=== PATIENT | male | born 1945 | race Caucasian/White ===

== ENCOUNTER 2020-03-16 13:38 | Emergency (ER) | payer MEDICARE, SELFPAY ==
[2020-03-16 13:51] VITALS: BP 150/70; PULSE 78; RESP 18; TEMP 36.2; O2SAT 96
--- NOTE | 2020-03-16 13:53 | ED.WOUNDLAC ---
HPI - Wound/Laceration General Chief Complaint: Wound/Laceration Stated Complaint: Laceration on hand Time Seen by Provider: 03/16/20 13:53 Source: patient Mode of arrival: ambulatory Limitations: no limitations History of Present Illness HPI narrative: Akash Scanlon is a 74 yo male with a PMH of HTN, BPH, high cholesterol, [facility]eration left hand in the web between fingers 1 and 2, 3 cm in length; occurred POA. needs tetanus vaccine Related Data Home Medications Medication Instructions Recorded Confirmed atorvastatin 40 mg PO DAILY 03/16/20 03/16/20 diclofenac sodium 75 mg PO DAILY 03/16/20 03/16/20 loteprednol etabonate [Lotemax] 2 drp DAILY 03/16/20 03/16/20 quinapril-hydrochlorothiazide 20 - 25 tablet PO DAILY 03/16/20 03/16/20 tamsulosin 0.4 mg PO DAILY 03/16/20 03/16/20 Allergies Allergy/AdvReac Type Severity Reaction Status Date / Time doxycycline Allergy Mild Hives Verified 03/16/20 14:00 Review of Systems Review of Systems: Narrative: CONSTITUTIONAL: Denies fever, chills, sweats. EYES: Denies visual changes, redness, discharge. ENT: Denies rhinorrhea, congestion, sore throat, otalgia. CARDIOVASCULAR: Denies chest pain, palpitations, edema. RESPIRATORY: Denies dyspnea, wheezing, cough GASTROINTESTINAL: Denies abdominal pain, nausea, vomiting, diarrhea. GENITOURINARY: Denies dysuria, hematuria, abnormal discharge SKIN: Denies rash or itching. 3 cm laceration between fingers 1 and 2 in the webbing of hand NEUROLOGIC: Denies numbness, or focal weakness. PSYCHIATRIC: Denies anxiety or depression. [facility] Past Medical History Medical History Enlarged prostate High cholesterol Hypertension Family History Family History Other Heart disease Hypertension Social History Social History (Updated 03/16/20 @ 14:21 by Diana Azevedo CNP) Smoking status: Former smoker Alcohol intake: current Gender identity (if verbalized by the patient): Male Comments At time of signature, I agree with nursing past medical, surgical, social and family history. There is no relevant family history pertinent to the presenting complaint. Exam Narrative: Exam Narrative: GENERAL: This is a well-nourished, well-developed patient, in mild distress. HEAD: normocephalic, atraumatic. EYES: Sclera clear/white. Vision is grossly intact. EARS: External ears normal,. Hearing grossly intact. NOSE: External nose normal without nasal discharge, nares without redness, no rhinorrhea. THROAT: Mucous membranes moist, NECK: Neck supple, CARDIOVASCULAR: Regular rate and rhythm without murmurs, gallops, or rubs. RESPIRATORY: Clear to auscultation. Breath sounds equal bilaterally. GASTROINTESTINAL: Abdomen soft, SKIN: warm, intact with no suspicious lesions or rash, good texture and turgor.Laceration in web of L hand- finger 1-2 NEURO: awake, alert, and oriented to person, place and time. There were no obvious focal neurologic abnormalities. Steady gait EXTREMITIES: Normal range of motion. BACK: Nontender without deformity Course Course Emergency Course: Patient came here with laceration to the webbing of his left hand between fingers 1 and 2-requires suturing 6 sutures 3 cm laceration on left hand with no complications, be removed in 5 to 7 days Vital Signs Vital signs: Vital Signs Temperature 97.1 F L 03/16/20 13:51 Pulse Rate 78 03/16/20 13:51 Respiratory Rate 18 03/16/20 13:51 Blood Pressure 150/70 H 03/16/20 13:51 Pulse Oximetry 96 03/16/20 13:51 Temperature 97.1 F L 03/16/20 13:51 Pulse Rate 78 03/16/20 13:51 Respiratory Rate 18 03/16/20 13:51 Blood Pressure 150/70 H 03/16/20 13:51 Pulse Oximetry 96 03/16/20 13:51 Procedures Laceration Laceration 1: Date: 03/16/20 Time: 14:20 Site: hand Side (If applicable): le
[2020-03-16] MEDS: TETANUS,DIPHTHERIA,AC PERTUSSIS ADULT (0.5 ML) BOOSTRIX IM (14:00)
== END 2020-03-16 14:25 | disposition home or self-care (01) ==
PROVIDERS: Emergency Provider Nurse Practitioner; PCP Family Medicine Adolescent Medicine
DX: S61.412A Laceration without foreign body of left hand, initial encounter (principal); I10 Essential (primary) hypertension; N40.0 Benign prostatic hyperplasia without lower urinary tract symptoms; E78.00 Pure hypercholesterolemia, unspecified; Z87.891 Personal history of nicotine dependence; Z23 Encounter for immunization; W26.8XXA Contact with other sharp object(s), not elsewhere classified, initial encounter
CPT/HCPCS: 12002; 90471; 90715; 99212; G0463

== ENCOUNTER 2022-03-23 07:37 | Outpatient (CLI) | payer MEDICARE, SELFPAY ==
--- NOTE | 2022-03-23 08:24 | ECG_ITS ---
Measurements Intervals [place] Rate: 63 P: 69 UT: 215 QRS: 1 QRSD: 109 T: 24 QT: 416 QTc: 427 Interpretive Statements SINUS RHYTHM WITH FIRST DEGREE AV BLOCK OTHERWISE WITHIN NORMAL LIMITS NO PREVIOUS ECG AVAILABLE FOR COMPARISON Electronically Signed On 03-23-2022 14:50:40 CONFIGURATION RELEASE MANAGER by Akash Dye M.D.
[2022-03-23 09:04] LABS: Basophils Absolute Auto 0.1 K/mm3 (0.0-0.1); Basophils Percent Auto 0.8 % (0.2-1.2); Eosinophils Absolute Auto 0.2 K/mm3 (0-0.3); Eosinophils Percent Auto 3.1 % (0-4.4); Hematocrit 47.2 % (42.0-52.0); Hemoglobin 15.7 g/dL (14.0-18.0); Immature Granulocyte Absolute 0.02 K/mm3 (0.00-0.031); Immature Granulocyte Percent A 0.3 % (0-0.5); Lymphocytes Percent Auto 16.9 % (18.3-44.2); Mean Corpuscular HGB Conc 33.3 g/dl (32-36); Mean Corpuscular Hemoglobin 31.3 pg (26-34); Mean Corpuscular Volume 94.2 fl (80-100); Mean Platelet Volume 9.5 fl (7.4-10.4); Monocytes Absolute Auto 0.6 K/mm3 (0.1-0.6); Monocytes Percent Auto 10.2 % (2.6-8.5); Neutrophils Absolute Auto 4.1 K/mm3 (1.3-6.7); Neutrophils Percent Auto 68.7 % (45.5-73.1); Platelet Count Result 223 k/mm3 (150-375); Red Blood Count 5.01 M/mm3 (4.6-6.20); Red Cell Distribution Width 11.2 % (11.5-14.5); White Blood Count 5.9 K/mm3 (4.5-10.0)
[2022-03-23 09:14] LABS: Urine Cotinine NEGATIVE
[2022-03-23 09:16] LABS: Hemoglobin A1C 5.8 % (<5.7)
== END 2022-03-23 07:38 | disposition home or self-care (01) ==
PROVIDERS: PCP Family Medicine Adolescent Medicine; Visit Provider Orthopaedic Surgery
DX: M17.12 Unilateral primary osteoarthritis, left knee (principal); Z01.818 Encounter for other preprocedural examination; I44.0 Atrioventricular block, first degree
CPT/HCPCS: 80307; 83036; 85025; 86850; 86900; 86901; 87081; 93005

== ENCOUNTER 2022-04-04 00:15 | Day surgery (SDC) | payer MEDICARE, SELFPAY ==
--- NOTE | 2022-03-23 07:38 | PC.NURSE ---
PRE-OP INSTRUCTIONS, PLEASE READ CAREFULLY Report to the Outpatient Waiting Room, entrance under the green pavilion located off [facility], at time _0600_ on date _04/04/22_. Planned Procedure Time: _0730_. PACK A SMALL OVERNIGHT BAG AND LEAVE IN THE CAR ALONG WITH YOUR WALKER Time changes happen often and if your time is changed the preop area will call you the afternoon before. - You and your visitor will be asked to self-screen and do not enter if you have any COVID symptoms. - Only one visitor is requested with a max of two and NO children visitors are allowed at this time. - The patient visitor may be requested to leave or wait in car when not with patient due to distancing restrictions. - A mask is REQUIRED within the hospital. -VISITING HOURS 8AM-8PM Patients may have clear liquids (water, carbonated beverages, clear teas, apple juice) until 3 hours prior to surgery (0430 AM) with a maximum of 20 ounces. - No food from midnight until time of surgery Take the following medications with a SIP of water the morning of surgery: _EYE DROPS, TYLENOL IF NEEDED_ Medications to discontinue _DICLOFENAC PER DR. GILMAN'S INSTRUCTIONS_ Medications to discontinue per ANESTHESIA -_MULTIVITAMIN 3 DAYS PRIOR TO SURGERY, Last dose to be taken on 03/31/22 Please no deodorant, or body powder the day of surgery. No jewelry (including any body piercings) or valuables the day of surgery, leave them at home. Please take a shower or bath the night before, or the morning of, surgery with an antibacterial soap. Wear comfortable, loose fitting clothing. - Jewelry must be removed prior to entering the operating room. Rings and piercings that are not removed may be cut off. - The hospital will not accept responsibility for valuables. - Please leave all valuables, including medications, at home the day of surgery. If you are going home after surgery, a licensed driver guard must drive you home. - NO public transportation without another adult if you receive anesthesia. - We recommend that an adult stay with you for 24 hours following discharge. - We also recommend that you do not drive, make important decision, drink alcoholic beverages, or take any drugs that were not prescribed by your health care provider for at least 24 hours after your discharge time. Follow any additional instructions given to you from your surgeon. TOTAL JOINT CLASS 03/28/22 @ 10AM, [facility] If you or anyone in your household have experienced Covid symptoms in the past week, please notify your surgeon or the nurse liaison at the phone number below for possible testing. Instructions given to _PATIENT_and asked if any additional questions and then verbalized understanding. Patient advised to call surgeon office or pre surgery nurse liaison [phone] if any additional questions.
[2022-03-23 08:01] VITALS: BP 140/68; PULSE 70; RESP 20; TEMP 36.4; O2SAT 98; BMI 28.5
--- NOTE | 2022-03-30 14:41 | PM.IMHP ---
H&P: HPI History of Present Illness Date/Time: 03/30/22 14:41 Chief Complaint: the patient is a 76-year-old male who sees Dr. Solorio regarding his left knee. The patient has chronic ongoing history of pain due to primary osteoarthritis advanced in nature. He has aching pain that limits his daily activities he cannot stand for long periods he cannot walk long distances he has aching pain with associated swelling with startup pain rest pain and night pain. X-rays show advanced primary osteoarthritis in the left knee joint. The patient has failed a long course of conservative measures including cortisone therapy and anti-inflammatories at this point he has discussed further treatment options in detail Dr. Solorio he would now like to proceed with a left total knee arthroplasty. Review of Systems Review of Systems: Ten point review of systems otherwise negative [facility] Past Medical History Medical History Enlarged prostate High cholesterol Hypertension Surgical History Surgical History History of back surgery (~10/2020) History of total right knee replacement (2017) Hx of elbow surgery (~1967) Hx of hernia repair (~1990) Family History Family History Father Acute myocardial infarction Mother CHF (congestive heart failure) Sibling Hypertension Other Heart disease Social History Social History Smoking packs per day: 2 Smoking cigarettes per day: 40.0 Years smoked: 6 Smoking pack-years: 12.00 Smoking status: Former smoker Second hand tobacco smoke exposure: No Smoking end date: 03/25/71 Alcohol intake: current Alcohol use details: STATES 1 DRINK EVERY COUPLE OF WEEKS Substance use: never Substance use type: does not use Gender identity (if verbalized by the patient): Male Spiritual care concerns: No Meds Home Medications and Allergies Home Medications Medication Instructions Recorded Confirmed Type loteprednol etabonate 0.5 % eye 1 drp DAILY 03/16/20 03/23/22 History gel drops (Lotemax) rosuvastatin 40 mg tablet 40 mg PO DAILY #90 tabs 01/30/22 03/23/22 Rx diclofenac sodium 75 mg 75 mg PO BID #180 tabs 02/05/22 03/23/22 Rx tablet,delayed release quinapril 20 1 tablet PO DAILY #90 tabs 02/08/22 03/23/22 Rx mg-hydrochlorothiazide 25 mg tablet acetaminophen 325 mg tablet 650 mg PO QID PRN Pain 03/23/22 03/23/22 History (Tylenol) cyclosporine 0.05 % eye drops in a 1 drp EACH EYE Q12H 03/23/22 03/23/22 History dropperette (Restasis) fexofenadine-pseudoephedrine ER 1 tablet PO QAM PRN SEASONAL 03/23/22 03/23/22 History 180 mg-240 mg tablet,ext.release ALLERGIES 24 hr (Heather-D 24 Hour) multivitamin 1 tablet PO DAILY 03/23/22 03/23/22 History tamsulosin 0.4 mg capsule 0.8 mg PO BID 03/23/22 03/23/22 History Allergies Allergy/AdvReac Type Severity Reaction Status Date / Time doxycycline Allergy Mild Hives Verified 03/23/22 07:54 Exam Narrative: on exam the patient is noted be a well-developed well-nourished male no acute distress alert oriented x3. Normal mood and affect. Hearing and vision are intact. Respiratory is good no distress. Pulse regular rate and rhythm. Abdomen benign. The patient is noted to be 5 ft 11 in tall 200 lb with a BMI of 27.9. Extremities show the patient's left knee to be painful with manipulation and range of motion. He has tenderness along the joint lines and pain with extremes of motion with subpatellar crepitation mild effusion swelling hips move well with negative Stinchfield negative Hernan. Neurovascular is intact skin is intact x-rays show advanced primary osteoarthritis central nervous system within normal limits. Mild varus deformity left knee with [id number] changes in medial compartment are noted. Ass
--- NOTE | 2022-03-30 15:20 | PC.NURSE ---
Report to the Outpatient Waiting Room, entrance under the green pavilion located off [facility], at time __6:00AM on date __04/04/22 . Planned Procedure Time: __7:30AM . (RESCHEDULED BACK TO ORIGINAL DATE & TIME) Time changes happen often and if your time is changed the preop area will call you the afternoon before. - You and your visitor will be asked to self-screen and do not enter if you have any COVID symptoms. - Only one visitor is requested with a max of two and NO children visitors are allowed at this time. - The patient visitor may be requested to leave or wait in car when not with patient due to distancing restrictions. - A mask is optional within the hospital. Patients may have clear liquids (water, carbonated beverages, clear teas, apple juice) until 3 hours prior to surgery with a maximum of 20 ounces. - No food from midnight until time of surgery Take the following medications with a SIP of water the morning of surgery: EYE DROPS, TYLENOL NEEDED Medications to discontinue per physician ___HOLD DICLOFENAC PER DR GILMAN'S INSTRUCTIONS_ HOLD ALL VITAMINS/SUPPLEMENTS 3 DAYS PRE-OP PER ANESTHESIA- LAST DOSE 03/31/22___ Please no make-up, nail mohawk, hairspray, perfume, deodorant, or body powder the day of surgery. No jewelry (including any body piercings) or valuables the day of surgery, leave them at home. Please take a shower or bath the night before, or the morning of, surgery with an antibacterial soap. Wear comfortable, loose fitting clothing. Children are encouraged to wear pajamas. - Jewelry must be removed prior to entering the operating room. Rings and piercings that are not removed may be cut off. - The hospital will not accept responsibility for valuables. - Please leave all valuables, including medications, at home the day of surgery. If you are going home after surgery, a licensed tow truck driver must drive you home. - NO public transportation without another adult if you receive anesthesia. - We recommend that an adult stay with you for 24 hours following discharge. - We also recommend that you do not drive, make important decision, drink alcoholic beverages, or take any drugs that were not prescribed by your health care provider for at least 24 hours after your discharge time. Follow any additional instructions given to you from your surgeon. If you or anyone in your household have experienced Covid symptoms in the past week, please notify your surgeon or the nurse liaison at the phone number below for possible testing. Telephone instructions given to __PATIENT and asked if any additional questions and then verbalized understanding. Patient advised to call surgeon office or pre surgery nurse liaison [phone] if any additional questions.
--- NOTE | 2022-04-03 09:10 | WPDANESEPPF ---
Anes - Initial Pre Proc Eval Procedure: Operation Date: 04/04/22 07:30 Proposed Procedures p Left Total Knee Arthroplasty - Zachery Solorio MD Date/Time: 04/03/22 09:10 Surgeon: Zachery Solorio MD Pre Op Diagnosis: OA left knee Patient Data Age: 76 Gender: M Height: 1.8 m Weight: 92.9 kg Last Vital Signs Temp 36.4 C 03/23/22 08:01 Pulse 70 03/23/22 08:01 Resp 20 03/23/22 08:01 BP 140/68 03/23/22 08:01 Pulse Ox 98 03/23/22 08:01 O2 Del Method Room Air 03/23/22 08:01 Allergies Allergy/AdvReac Type Severity Reaction Status Date / Time doxycycline Allergy Mild Hives Verified 04/04/22 06:16 Home Medications Medication Instructions Recorded Confirmed Type loteprednol etabonate 0.5 % eye 1 drp DAILY 03/16/20 04/04/22 History gel drops (Lotemax) rosuvastatin 40 mg tablet 40 mg PO DAILY #90 tabs 01/30/22 04/04/22 Rx diclofenac sodium 75 mg 75 mg PO BID #180 tabs 02/05/22 04/04/22 Rx tablet,delayed release quinapril 20 1 tablet PO DAILY #90 tabs 02/08/22 04/04/22 Rx mg-hydrochlorothiazide 25 mg tablet acetaminophen 325 mg tablet 650 mg PO QID PRN Pain 03/23/22 04/04/22 History (Tylenol) cyclosporine 0.05 % eye drops in a 1 drp EACH EYE Q12H 03/23/22 04/04/22 History dropperette (Restasis) fexofenadine-pseudoephedrine ER 1 tablet PO QAM PRN SEASONAL 03/23/22 04/04/22 History 180 mg-240 mg tablet,ext.release ALLERGIES 24 hr (Heather-D 24 Hour) multivitamin 1 tablet PO DAILY 03/23/22 04/04/22 History tamsulosin 0.4 mg capsule 0.8 mg PO BID 03/23/22 04/04/22 History Patient hx anesthesia problems: none Family hx anesthesia problems: none Results Review: All pre-operative results and documents have been reviewed as part of the pre-operative evaluation. [facility] Past Medical History Medical History Enlarged prostate High cholesterol Hypertension Surgical History Surgical History History of back surgery (~10/2020) History of total right knee replacement (2018) Hx of elbow surgery (~1967) Hx of hernia repair (~1990) Family History Family History Father Acute myocardial infarction Mother CHF (congestive heart failure) Sibling Hypertension Other Heart disease Social History Social History Smoking packs per day: 2 Smoking cigarettes per day: 40.0 Years smoked: 6 Smoking pack-years: 12.00 Smoking status: Former smoker Second hand tobacco smoke exposure: No Smoking end date: 03/25/71 Alcohol intake: current Alcohol use details: STATES 1 DRINK EVERY COUPLE OF WEEKS Substance use: never Substance use type: does not use Living arrangements: with family Gender identity (if verbalized by the patient): Male Spiritual care concerns: No Anes - Eval Final PreProcedure Day of Procedure 04/03/22 09:10 Patient weight: overweight Heart: regular rate and rhythm Lungs: clear to auscultation Airway: Mallampati scale class II Neurological: alert and oriented Last oral intake: >/= 8 hours ASA classification: II Emergent: no Anesthetic plan: proceed Anesthesia type and monitoring: general LMA and standard monitoring Results Review: All pre-operative results and documents have been reviewed as part of the pre-operative evaluation. Informed Consent: The patient's anesthetic plan and its attendant risks and benefits were discussed with the patient/family/POA. Questions were solicited and answers provided to the satisfaction of the patient/family/POA.
[2022-04-04] VITALS (17 sets, daily range): BP systolic 126–153; BP diastolic 54–98; PULSE 63–88; RESP 10–20; TEMP 36.3–36.9; O2SAT 92–100
--- NOTE | ~2022-04-04 | XR_ITS ---
EXAMINATION: XR knee LT 2V DATE: 04/04/2022 09:45 INDICATION: Left knee arthroplasty. Postop. TECHNIQUE: 2 views of left knee were obtained. COMPARISON: None. FINDINGS: There is a total left knee arthroplasty with patellar resurfacing in near-anatomic alignmen t. No fracture. There is gas in the knee joint and soft tissues, consistent with recent surgery. Ante rior skin yvon are noted. IMPRESSION: 1. Total left knee arthroplasty in near-anatomic alignment. Reviewed, dictated and finalized at location A. EMS PROGRAM MANAGER
[2022-04-04] MEDS: LACTATED RINGERS 1,000 ML 30 ML IV CONT ×2 (06:35→09:34)
[2022-04-04] MEDS: TRANEXAMIC ACID 1,000MG/ISO100 1,000 MG/100 ML BAG 200 MG IVPB (07:07)
--- NOTE | 2022-04-04 07:09 | WPDHPUPDATE1 ---
History and Physical Update Update Date/Time: 04/04/22 07:09 History and Physical has been reviewed, including an updated exam of the patient. There are NO changes in the patient's condition. Risks, benefits, and alternatives have been discussed and questions answered. Patient agrees to proceed with procedure.
--- NOTE | 2022-04-04 07:10 | WPDANESPNB ---
Anes - Peripheral Nerve Block Date/Time: 04/04/22 07:10 I have discussed with the patient/family/POA the placement of a peripheral nerve block for post-operative pain management, including associated risks, benefits, complications, and side effects. Alternative methods of post-operative analgesia were detailed. Questions were solicited and answers provided to the satisfaction of the patient/family/POA. Time-Out: A pre-procedural Time-Out was completed immediately before starting the procedure and confirmed: Patient Identification, Site, Procedure, Patient Position and the Availability of Requisite Equipment. Clinical Indications: Acute post-operative pain management requested by the operative surgeon. Nerve Block Insertion Note Anes-nerve block: adductor canal left Patient position: supine Skin prep: chlorhexidine Needle: 22 gauge, stimulating, insulated echogenic needle. Needle length: 80 mm Technique: ultrasound Injectate: bupivacaine 0.5% with epi 5 mcg/ml (30cc - no epi) Observations: tolerated well Complications: none Procedure start time:: 715 Procedure end time:: 718
[2022-04-04] MEDS: ceFAZolin 2 GM/D5W 50 ML 2 GM/50 ML BAG IVPB ×3 (07:28→23:00)
--- NOTE | 2022-04-04 08:57 | W.PM.PROC2 ---
Procedure Note - Detailed Date of Procedure 04/04/22 Pre-op Diagnosis OA left knee Post-op Diagnosis Same Procedure Performed [Left] total knee arthroplasty Surgeon Zachery Solorio MD Air Traffic Instructor Reji Arauoj Anesthesia General Description of Procedure The patient was brought to the operating room #7. General anesthetic was administered. Placed on the operating table and sterilely prepped and draped in usual manner. A longitudinal incision was made. Tourniquet inflated to 300 mmHg for a total of [47] minutes. Dissection carried down to the fascia. Medial parapatellar incision was made and the patella subluxated laterally. Patella cut from 25 to 15 mm and sized for a 34 mm button. The tibia cut perpendicular to the long axis and femur cut in 5 degrees of valgus, a 70mm femur trialed. 79mm tibia was felt to fit the best. The soft tissue balanced, hemostasis obtained. All [address], 79 tibia, 70 femur, 34 mm patella, and 12AS mm poly. Motion was 0-125 degrees with good stability in flexion and extension. The wound was closed with #2 vicryl, 2-0 Vicryl and yvon. Implants [employer] Estimated Blood Loss 200 Drains No Packing No Pathology None sent Complications No immediate complications Condition Stable Disposition PACU
[2022-04-04] MEDS: fentaNYL CITRATE INJ (*CRX) 100 MCG/2 ML VIAL 25 MCG IV PUSH ×8 (09:43→10:15)
--- NOTE | 2022-04-04 10:03 | P.OPB_ITS ---
Procedure Note - Brief Procedure Note - Brief Date of procedure: 04/04/22 Pre-op diagnosis: OA left knee Preop diagnosis advanced primary osteoarthritis left knee joint Postop diagnosis advanced primary osteoarthritis left knee joint, status post left total knee arthroplasty Procedure performed: Left total knee arthroplasty Description of procedure: The patient was taken to the operating room on April 04, 2022 I entered the operating room at 7:40 a.m.. I assisted with placement of a tourniquet positioning of the patient on the operating table along with a sterile prep and drape of the left lower extremity. Dr. Solorio then entered the room and commenced with the left total knee arthroplasty. Throughout the procedure I assisted with wound retraction hemostasis with suction Bovie, placement of the trial and real total knee implants along with excess cement removal and irrigation of the wound. Once Dr. Solorio completed the surgical procedure I then proceeded to obtain hemostasis with cautery and Surgicel powder, inspected the wound and removed any remaining cement and bone debris. I then proceeded with closing the deep joint capsule with 2. Vicryl and 2. Quill type suture. I then irrigated the wound again proceeded with superficial wound closure with 2-0 Vicryl 2 Quill type suture and yvon followed by application of a sterile dressing. The patient was then transferred from the operating table to the stretcher where he was transported to recovery room good condition. Total blood loss was approximately 200 cc. I exited the room at 9 30 a.m.. Surgeon: Surgeon-Zachery Solorio MD property management assistant-Reji Araujo PA-C
[2022-04-04] MEDS: ONDANSETRON INJ 4 MG/2 ML VIAL IV PUSH ×2 (10:34→17:09)
--- NOTE | 2022-04-04 11:17 | ADMGEN ---
This patient, Akash Scanlon, was admitted to Bed 15. Patient/family oriented to hospital policies and general routines including ID bracelet, bed and alarms, visiting hours, pain management, procedures, bathroom and other care routines, personal items, smoking policy, room service/diet, and visiting hours. Information on how to activate the Rapid Response Team has been discussed. Patient/Family are encouraged to report perceived risks to care and to ask questions if they do not understand what they are told or what they should do.
[2022-04-04] MEDS: HYDROcodone/acetaminophen (*CRX) 5-325 MG TABLET 1 TAB PO (12:53)
[2022-04-04 13:19] LABS: Estimated CRCL calculation 85 ml/min; Estimated Glomerular Filt Rate > 60
[2022-04-04] MEDS: CELECOXIB 200 MG CAPSULE PO (17:15)
[2022-04-04] MEDS: SENNA/DOCUSATE SODIUM TABLET 2 TAB PO (17:15)
--- NOTE | 2022-04-04 17:50 | PM.IMCN ---
Assessment and Plan Assessment and plan (1) Unilateral primary osteoarthritis, left knee: Code(s): M17.12 - Unilateral primary osteoarthritis, left knee Status: Acute (2) Benign prostatic hyperplasia with lower urinary tract symptoms: Code(s): N40.1 - Benign prostatic hyperplasia with lower urinary tract symptoms Status: Acute (3) Pure hypercholesterolemia, unspecified: Code(s): E78.00 - Pure hypercholesterolemia, unspecified Status: Acute (4) Essential (primary) hypertension: Code(s): I10 - Essential (primary) hypertension Status: Acute Plan Status post left knee arthroplasty for left knee osteoarthritis. On rivaroxaban for DVT prophylaxis tramadol p.r.n. hydrocodone p.r.n.. Operative antibiotics as ordered Hypertension resume home medication Hyperlipidemia resume home medication Borderline diabetes A1c 5.8 BPH on tamsulosin Check labs in a.m. DVT prophylaxis on rivaroxaban HPI Data of Consult Consult date: 04/04/22 Requesting Physician: Zachery Solorio MD Primary Care Provider: Rancho Salcedo MD Consult Narrative Narrative: Akash Scanlon is a 76 year old male who is status post left total knee arthroplasty for his chronic left knee arthritis. Hospitalist team team consulted for medical management. Is doing well. Denies any chest pain or shortness of breath. He already underwent PT OT evaluation this afternoon. Had a bit of nausea but is better now. He has history of hypertension hyperlipidemia. No history of congestive heart failure or coronary artery disease or stroke or diabetes. His medications were reviewed. Review of Systems Review of Systems: - CONSTITUTIONAL: Denies weight loss, fever and chills. - HEENT: Denies changes in vision and hearing - RESPIRATORY: Denies SOB and cough. - CV: Denies palpitations and CP. - GI: Denies abdominal pain, nausea, vomiting and diarrhea. - : Denies dysuria and urinary frequency. - MSK: Denies myalgia and joint pain. Chronic arthritis diffusely - SKIN: Denies rash and pruritus. - NEUROLOGICAL: Denies headache and syncope. - PSYCHIATRIC: Denies recent changes in mood. Denies anxiety and depression. 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) History of total right knee replacement (2017) Hx of elbow surgery (~1967) Hx of hernia repair (~1990) Family History Family History Father Acute myocardial infarction Mother CHF (congestive heart failure) Sibling Hypertension Other Heart disease Social History Social History Smoking packs per day: 2 Smoking cigarettes per day: 40.0 Years smoked: 6 Smoking pack-years: 12.00 Smoking status: Never smoker Second hand tobacco smoke exposure: No Smoking end date: 03/25/71 Alcohol intake: current Alcohol use details: STATES 1 DRINK EVERY COUPLE OF WEEKS Substance use: never Substance use type: does not use Lack of Transportation: No Lack of Food: Never True Current Housing: I Have Housing Concerned About Future Housing: No Difficulty Paying Gas/Electric Bills: No Difficulty Paying for Meds: No Currently Unemployed: No Education: Trade/Vocational Certificate Difficulty w/ Childcare or Family Care: No Living arrangements: with family Gender identity (if verbalized by the patient): Male Spiritual care concerns: No Meds Home Medications and Allergies Home Medications Medication Instructions Recorded Confirmed Type loteprednol etabonate 0.5 % eye 1 drp DAILY 03/16/20 04/04/22 History gel drops (Lotem
[2022-04-04] MEDS: cycloSPORINE 0.4 ML OPHTH SOLUTION 1 DROP EACH EYE (21:34)
[2022-04-04] MEDS: traMADol HCL (*CRX) 50 MG TABLET PO (21:34)
[2022-04-04] MEDS: RIVAROXABAN 10 MG TABLET PO (21:35)
[2022-04-05] MEDS: traMADol HCL (*CRX) 50 MG TABLET PO (03:24)
[2022-04-05 03:42] VITALS: BP 139/62; PULSE 65; RESP 20; TEMP 36.8; O2SAT 96
[2022-04-05 05:28] LABS: Basophils Percent Auto 0.3 % (0.2-1.2); Eosinophils Percent Auto 0.1 % (0-4.4); Hematocrit 39.9 % (42.0-52.0); Hemoglobin 13.5 g/dL (14.0-18.0); Immature Granulocyte Absolute 0.03 K/mm3 (0.00-0.031); Immature Granulocyte Percent A 0.3 % (0-0.5); Lymphocytes Absolute Auto 1.02 K/mm3 (0.9-3.2); Lymphocytes Percent Auto 10.2 % (18.3-44.2); Mean Corpuscular HGB Conc 33.8 g/dl (32-36); Mean Corpuscular Hemoglobin 31.7 pg (26-34); Mean Corpuscular Volume 93.7 fl (80-100); Mean Platelet Volume 9.2 fl (7.4-10.4); Monocytes Absolute Auto 1.3 K/mm3 (0.1-0.6); Monocytes Percent Auto 12.7 % (2.6-8.5); Neutrophils Absolute Auto 7.7 K/mm3 (1.3-6.7); Neutrophils Percent Auto 76.4 % (45.5-73.1); Platelet Count Result 195 k/mm3 (150-375); Red Blood Count 4.26 M/mm3 (4.6-6.20)
[2022-04-05 05:45] LABS: Anion Gap 2 mmol/L (8-16); Blood Urea Nitrogen 18 mg/dL (9-20); Calcium 8.2 mg/dL (8.4-10.2); Carbon Dioxide 31 mmol/L (22-30); Chloride 103 mmol/L (98-107); Estimated CRCL calculation 75 ml/min; Estimated Glomerular Filt Rate > 60; Glucose 108 mg/dL (65-110); Magnesium 1.9 mg/dL (1.6-2.3); Potassium 3.9 mmol/L (3.4-5.0); Sodium 136 mmol/L (137-145)
[2022-04-05] MEDS: ceFAZolin 2 GM/D5W 50 ML 2 GM/50 ML BAG IVPB (05:56)
[2022-04-05] MEDS: HYDROcodone/acetaminophen (*CRX) 5-325 MG TABLET 1 TAB PO (07:39)
[2022-04-05] MEDS: lisinopriL 20 MG TABLET PO ×2 (07:40→07:42)
[2022-04-05] MEDS: MULTIVITAMINS THERAPEUTIC TAB (*BKC) 1 TABLET PO (07:40)
[2022-04-05] MEDS: polyethylene glycoL 3350 17 GM POWD.PACK PO (07:40)
[2022-04-05] MEDS: ROSUVASTATIN 10 MG TABLET 40 MG PO (07:41)
[2022-04-05] MEDS: TAMSULOSIN HCL 0.4 MG CAPSULE 0.8 MG PO (07:41)
[2022-04-05] MEDS: SENNA/DOCUSATE SODIUM TABLET 2 TAB PO (07:42)
[2022-04-05] MEDS: CELECOXIB 200 MG CAPSULE PO (07:42)
[2022-04-05] MEDS: hydroCHLOROthiazide 25 MG TABLET PO (07:42)
--- NOTE | 2022-04-05 11:12 | PM.DS ---
DS: Admitting Diagnosis Discharge Date April 05, 2022 Admitting Diagnosis Admitting diagnosis-severe primary osteoarthritis left knee Discharge diagnosis-severe primary osteoarthritis left knee status post total knee arthroplasty DS: Summary Hospital Course Hospital Course: Patient was a 76-year-old male who underwent left total knee arthroplasty performed Dr. Solorio on April 04, 2022. Patient was held overnight for observation and pain control. The patient did well no postoperative complications were noted. He was feeling good up ambulating in therapy tolerating this well. The patient was alert oriented x3. Normal mood and affect. Vital signs are stable afebrile neurovascular is intact wound is clean and dry calves are benign. Pain was well controlled he had no postoperative complaints was ready for discharge to today. Time Spent with Patient Time attestation: Total time spent providing and/or coordinating discharge services: Exam Narrative: The patient was alert oriented x3. Normal mood and affect. Tolerating physical therapy well. Vital signs stable afebrile neurovascularly intact. Wound clean and dry. Calves benign. DS: Data Data Completed and Pending Labs on day of discharge: Labs from last 24 hours 04/05/22 04/05/22 04/05/22 05:19 05:19 05:19 WBC 10.0 RBC 4.26 L Hgb 13.5 L Hct 39.9 L MCV 93.7 MCH 31.7 MCHC 33.8 RDW 11.0 L Plt Count 195 MPV 9.2 Immature Gran % (Auto) 0.3 Neut % (Auto) 76.4 H Lymph % (Auto) 10.2 L Park % (Auto) 12.7 H Eos % (Auto) 0.1 Baso % (Auto) 0.3 Lymph # (Auto) 1.02 Park # (Auto) 1.3 H Eos # (Auto) 0.0 Baso # (Auto) 0.0 Abs Immat Gran (auto) 0.03 Absolute Neuts (auto) 7.7 H Absolute Nucleated RBC 0.0 Nucleated RBC % 0.0 Sodium 136 L Potassium 3.9 Chloride 103 Carbon Dioxide 31 H Anion Gap 2 L BUN 18 Creatinine 0.80 Estim Creat Clear Calc 75 Estimated GFR > 60 Glucose 108 Calcium 8.2 L Magnesium 1.9 Cancelled 04/04/22 12:45 WBC RBC Hgb Hct MCV MCH MCHC RDW Plt Count MPV Immature Gran % (Auto) Neut % (Auto) Lymph % (Auto) Park % (Auto) Eos % (Auto) Baso % (Auto) Lymph # (Auto) Park # (Auto) Eos # (Auto) Baso # (Auto) Abs Immat Gran (auto) Absolute Neuts (auto) Absolute Nucleated RBC Nucleated RBC % Sodium Potassium Chloride Carbon Dioxide Anion Gap BUN Creatinine 0.70 Estim Creat Clear Calc 85 Estimated GFR > 60 Glucose Calcium Magnesium Procedures/Treatments: Left total knee arthroplasty Discharge Plan Discharge Patient Disposition: Home, Self-Care Discharge Instructions: Zachery Solorio M.D [facility], [facility] [address] [place] [address] POST-OPERATIVE DISCHARGE INSTRUCTIONS TOTAL KNEE ARTHROPLASTY 1. When resting, lie on back with leg elevated above hear to minimize swelling. Significant swelling could indicate a blood clot and if this occurs call the office (or go to the ER) to have a venous ultrasound. 2. Do exercise 5 times a day. 3. Do not sit with leg down except for meals. 4. Wound Care: Nursing will give additional dressings at discharge. Patient to change dressing at home 1 week from surgery, then maintain until seen in office. 5. May shower with dressing in place. 6. Follow weight bearing status instructions. IMPORTANT: Remember not to sit in the chair for more than 30 minutes at a time. As a rule, during the first 14 days after surgery, only sit in the chair to work on the chair knee bending stretch exercise, for meals or for use of the restroom. Sitting in the chair promotes significant swelling in the knee and leg which will make the knee stiff and more painful and which simulates having a blood clot in the veins of the leg. If this type of significant diffuse swelling occurs, an ultras
--- NOTE | 2022-04-05 13:30 | PM.IMPN ---
Progress Note: A&P Assessment and Plan (1) Unilateral primary osteoarthritis, left knee: Code(s): M17.12 - Unilateral primary osteoarthritis, left knee Status: Acute (2) Benign prostatic hyperplasia with lower urinary tract symptoms: Code(s): N40.1 - Benign prostatic hyperplasia with lower urinary tract symptoms Status: Acute (3) Pure hypercholesterolemia, unspecified: Code(s): E78.00 - Pure hypercholesterolemia, unspecified Status: Acute (4) Essential (primary) hypertension: Code(s): I10 - Essential (primary) hypertension Status: Acute Plan Status post left knee arthroplasty for left knee osteoarthritis. On rivaroxaban for DVT prophylaxis tramadol p.r.n. hydrocodone p.r.n.. PeriOperative antibiotics as ordered Hypertension resume home medication blood pressure optimal Hyperlipidemia resume home medication Borderline diabetes A1c 5.8 BPH on tamsulosin Labs reviewed DVT prophylaxis on rivaroxaban as ordered. Okay to discharge from medical standpoint. Subjective Date/time seen: 04/05/22 13:31 Interval history: No overnight events. Work with therapy. Pain is well controlled. No chest pain or shortness of breath. Labs reviewed. Discussed with patient. And family. Plan for discharge today. Review of Systems Review of Systems: All systems reviewed & are unremarkable except as noted in HPI and below Exam Narrative: GENERAL: The patient is well developed, not in acute distress HEENT: Nonicteric sclerae, PERRLA, EOMI. Oropharynx clear. Moist mucous membranes. Conjunctivae appear well perfused. CHEST: Chest wall is nontender. HEART: Regular rate and rhythm without murmur, rubs, or gallops LUNGS: Clear to auscultation bilaterally. no respiratory distress ABDOMEN: Soft, positive bowel sounds, non-tender, no organomegaly. SKIN: No rash, no excessive bruising, petechiae, or purpura. NEUROLOGIC: Cranial nerves II-XII intact, alert and oriented x 3, no gross motor deficits EXTREMITIES: no edema, cyanosis or clubbing left knee with dressing on Objective Data Vital Signs Vital Signs: Vital Signs - 24 hr 04/04/22 14:00 04/04/22 16:29 04/04/22 19:41 Temperature 97.7 F 98.3 F Pulse Rate 77 66 65 Respiratory Rate 18 15 18 Blood Pressure 148/95 H 129/54 L 126/66 Pulse Oximetry 95 95 95 04/04/22 23:45 04/05/22 03:42 Temperature 98.4 F 98.2 F Pulse Rate 71 65 Respiratory Rate 18 20 Blood Pressure 130/60 139/62 Pulse Oximetry 94 96 Intake/Output Intake/Output: Intake & Output 04/02/22 04/03/22 04/04/22 04/05/22 23:59 23:59 23:59 23:59 Intake Total 1500 170 Balance 1500 170 Meds/Results Radiology Results: ITS Impressions Knee X-Ray 04/04/22 09:46 IMPRESSION: 1. Total left knee arthroplasty in near-anatomic alignment. Labs Labs: Laboratory Results - last 24 hr 04/05/22 04/05/22 04/05/22 05:19 05:19 05:19 WBC 10.0 RBC 4.26 L Hgb 13.5 L Hct 39.9 L MCV 93.7 MCH 31.7 MCHC 33.8 RDW 11.0 L Plt Count 195 MPV 9.2 Immature Gran % (Auto) 0.3 Neut % (Auto) 76.4 H Lymph % (Auto) 10.2 L [place] % (Auto) 12.7 H Eos % (Auto) 0.1 Baso % (Auto) 0.3 Lymph # (Auto) 1.02 [place] # (Auto) 1.3 H Eos # (Auto) 0.0 Baso # (Auto) 0.0 Abs Immat Gran (auto) 0.03 Absolute Neuts (auto) 7.7 H Absolute Nucleated RBC 0.0 Nucleated RBC % 0.0 Sodium 136 L Potassium 3.9 Chloride 103 Carbon Dioxide 31 H Anion Gap 2 L BUN 18 Creatinine 0.80 Estim Creat Clear Calc 75 Estimated GFR > 60 Glucose 108 Calcium 8.2 L Magnesium Cancelled 1.9
== END 2022-04-05 11:20 | disposition home or self-care (01) ==
LOC: ANHSURGERY 09:11 → ANHSUROVER 10:53
PROVIDERS: PCP Family Medicine Adolescent Medicine; Visit Provider Orthopaedic Surgery
PROC: (CPT 27447; principal; 2022-04-04 07:30)
DX: M17.12 Unilateral primary osteoarthritis, left knee (principal); G89.18 Other acute postprocedural pain; I10 Essential (primary) hypertension; E78.00 Pure hypercholesterolemia, unspecified; N40.1 Benign prostatic hyperplasia with lower urinary tract symptoms; Z87.891 Personal history of nicotine dependence
CPT/HCPCS: 27447; 64447; 36415; 73560; 80048; 80307; 82565; 83036; 83735; 85025; 86850; 86900; 86901; 87081; 93005; 97110; 97116; 97161; 97165; 97530; 97535; A9270; C1713; C1776; J0171; J0690; J1100; J1885; J2250; J2270; J2405; J2704; J2795; J3010; J3370; J7120

== ENCOUNTER 2023-07-17 14:30 | Outpatient (CLI) | payer MEDICARE, SELFPAY ==
--- NOTE | ~2023-07-17 | US_ITS ---
EXAMINATION: US soft tissue groin RT DATE: 07/17/2023 15:17 INDICATION: Unilateral inguinal hernia without obstruction. TECHNIQUE: Multiple grayscale and Doppler ultrasound images of the right groin were obtained. COMPARISON: None FINDINGS: There is a right inguinal hernia containing fat. IMPRESSION: 1. Right inguinal hernia containing fat. Reviewed, dictated and finalized at location E.
== END 2023-07-17 14:31 | disposition home or self-care (01) ==
PROVIDERS: PCP Family Medicine Adolescent Medicine; Visit Provider Nurse Practitioner Family
DX: K40.90 Unilateral inguinal hernia, without obstruction or gangrene, not specified as recurrent (principal)
CPT/HCPCS: 76882

== ENCOUNTER 2023-07-26 09:17 | Outpatient (CLI) | payer MEDICARE, SELFPAY ==
--- NOTE | 2023-07-26 09:29 | ECG_ITS ---
SEE SCANNED COPY FOR CONFIRMED REPORT MTDD
[2023-07-26 10:00] LABS: Anion Gap 5 mmol/L (4-12); Blood Urea Nitrogen 15 mg/dL (9-20); Calcium 9.3 mg/dL (8.4-10.2); Carbon Dioxide 31 mmol/L (22-30); Chloride 102 mmol/L (98-107); Estimated Glomerular Filt Rate > 60; Glucose 104 mg/dL (65-110); Potassium 3.8 mmol/L (3.4-5.0); Sodium 138 mmol/L (137-145)
== END 2023-07-26 09:18 | disposition home or self-care (01) ==
PROVIDERS: Anesthesiology; PCP Family Medicine Adolescent Medicine; Visit Provider Surgery
DX: Z79.899 Other long term (current) drug therapy (principal); Z87.19 Personal history of other diseases of the digestive system; Z98.890 Other specified postprocedural states; I10 Essential (primary) hypertension; Z01.818 Encounter for other preprocedural examination
CPT/HCPCS: 36415; 80048; 86850; 86900; 86901; 93005

== ENCOUNTER 2023-07-30 00:18 | Day surgery (SDC) | payer MEDICARE, SELFPAY ==
[2023-07-25 13:05] VITALS: BMI 28.6
--- NOTE | 2023-07-25 13:11 | PC.NURSE ---
PRE-OP INSTRUCTIONS, PLEASE READ CAREFULLY Report to the Outpatient Waiting Room, entrance under the green pavilion located off [facility], at time _1230_ on date _07/30/23_. Planned Procedure Time: _2:30 PM_. Time changes happen often and if your time is changed the preop area will call you the afternoon before. - You and your visitor will be asked to self-screen and do not enter if you have any COVID symptoms. - A mask is optional within the hospital at this time. Patients may have clear liquids (water, carbonated beverages, clear teas, apple juice) until 3 hours prior to surgery (1130 AM) with a maximum of 20 ounces. - No food from midnight until time of surgery Take the following medications with a SIP of water the morning of surgery: _RESTASIS EYE DROPS_ DO NOT STOP ANY OF YOUR OTHER PRESCRIPTION MEDICATIONS PRIOR TO SURGERY ?EXCEPT THE FOLLOWING Medications to discontinue - _DICLOFENAC INSTRUCTED BY DR. CHAVES_ Medications to discontinue per ANESTHESIA - MULTIVITAMIN 3 DAYS PRIOR TO SURGERY, Date to take last dose 07/26/23_ Please no make-up, nail [place], hairspray, perfume, deodorant, or body powder the day of surgery. No jewelry (including any body piercings) or valuables the day of surgery, leave them at home. Please take a shower or bath the night before, or the morning of, surgery with an antibacterial soap. Wear comfortable, loose fitting clothing. - Jewelry must be removed prior to entering the operating room. Rings and piercings that are not removed may be cut off. - The hospital will not accept responsibility for valuables. - Please leave all valuables, including medications, at home the day of surgery. If you are going home after surgery, a licensed hammer driver must drive you home. - NO public transportation without another adult if you receive anesthesia. - We recommend that an adult stay with you for 24 hours following discharge. - We also recommend that you do not drive, make important decision, drink alcoholic beverages, or take any drugs that were not prescribed by your health care provider for at least 24 hours after your discharge time. Follow any additional instructions given to you from your surgeon. If you or anyone in your household have experienced Covid symptoms in the past week, please notify your surgeon or the nurse liaison at the phone number below for possible testing. Telephone instructions given to _PATIENT_and asked if any additional questions and then verbalized understanding. Patient advised to call surgeon office or pre surgery nurse liaison [phone] if any additional questions.
[2023-07-30] VITALS (8 sets, daily range): BP systolic 126–149; BP diastolic 56–78; PULSE 56–83; RESP 14–18; TEMP 35.7–36.4; O2SAT 96–98
[2023-07-30] MEDS: LACTATED RINGERS 1,000 ML 30 ML IV CONT ×3 (12:35→16:50)
[2023-07-30] MEDS: ACETAMINOPHEN 500 MG TABLET 1000 MG PO (13:18)
[2023-07-30] MEDS: KETOROLAC 15 MG/ML VIAL (*BKC) IV PUSH (13:19)
--- NOTE | 2023-07-30 13:34 | WPDANESEPPF ---
Anes - Initial Pre Proc Eval Procedure: Operation Date: 07/30/23 14:30 Proposed Procedures p Laparoscopic Right Inguinal Hernia Repair with Mesh, Davinci Assisted - Trell Sullivan DO Date/Time: 07/30/23 13:34 Surgeon: Trell Sullivan DO Pre Op Diagnosis: right inguinal hernia Patient Data Age: 77 Gender: M Height: 1.8 m Weight: 92.6 kg Last Vital Signs Temp 36.4 C L 07/30/23 12:40 Pulse 56 L 07/30/23 12:40 Resp 18 07/30/23 12:40 BP 144/62 H 07/30/23 12:40 Pulse Ox 96 07/30/23 12:40 O2 Del Method Room Air 07/30/23 12:40 Allergies Allergy/AdvReac Type Severity Reaction Status Date / Time doxycycline Allergy Mild Hives Verified 07/30/23 12:55 Home Medications Medication Instructions Recorded Confirmed Type loteprednol etabonate 0.5 % eye 1 drp DAILY 03/16/20 07/30/23 History gel drops (Lotemax) cyclosporine 0.05 % eye drops in a 1 drp EACH EYE Q12H 03/23/22 07/30/23 History dropperette (Restasis) fexofenadine-pseudoephedrine ER 1 tablet PO QAM PRN SEASONAL 03/23/22 07/30/23 History 180 mg-240 mg tablet,ext.release ALLERGIES 24 hr (Heather-D 24 Hour) multivitamin 1 tablet PO DAILY 03/23/22 07/30/23 History lisinopril 20 1 tablet PO DAILY #90 tabs 12/24/22 07/30/23 Rx mg-hydrochlorothiazide 25 mg tablet rosuvastatin 40 mg tablet 40 mg PO DAILY #90 tabs 12/25/22 07/30/23 Rx diclofenac sodium 75 mg 75 mg PO BID #180 tabs 04/10/23 07/30/23 Rx tablet,delayed release tamsulosin 0.4 mg capsule 0.4 mg PO BID #180 caps 07/30/23 07/30/23 Rx Patient hx anesthesia problems: none Family hx anesthesia problems: none Results Review: All pre-operative results and documents have been reviewed as part of the pre-operative evaluation. 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) History of total right knee replacement (2018) Hx of elbow surgery (~1967) Hx of hernia repair (~1990) left inguinal Family History Family History Father Acute myocardial infarction Mother CHF (congestive heart failure) Diabetes mellitus Sibling Hypertension Other Heart disease Social History Social History Smoking packs per day: 2 Smoking cigarettes per day: 40.0 Years smoked: 6 Smoking pack-years: 12.00 Smoking status: Former smoker Tobacco type: cigarettes Second hand tobacco smoke exposure: No Smoking end date: 03/25/71 Alcohol intake: current Alcohol use details: STATES 1 DRINK EVERY COUPLE OF WEEKS Substance use: never Substance use type: does not use Lack of Transportation: No Lack of Food: Never True Current Housing: I Have Housing Concerned About Future Housing: No Difficulty Paying Gas/Electric Bills: No Difficulty Paying for Meds: No Currently Unemployed: No Education: Trade/Vocational Certificate Difficulty w/ Childcare or Family Care: No Living arrangements: with family Occupation/Education: retired Gender identity (if verbalized by the patient): Male Spiritual care concerns: No Anes - Eval Final PreProcedure Day of Procedure 07/30/23 13:34 Patient weight: overweight Heart: regular rate and rhythm Lungs: clear to auscultation Airway: Mallampati scale class II Neurological: alert and oriented Last oral intake: >/= 8 hours ASA classification: III Emergent: no Anesthetic plan: proceed Anesthesia type and monitoring: general ETT and standard monitoring Results Review: All pre-operative results and documents have been reviewed as part of the pre-operative evalua
--- NOTE | 2023-07-30 14:16 | WPDHPUPDATE1 ---
History and Physical Update Update Date/Time: 07/30/23 14:16 History and Physical has been reviewed, including an updated exam of the patient. There are NO changes in the patient's condition. Risks, benefits, and alternatives have been discussed and questions answered. Patient agrees to proceed with procedure.
[2023-07-30] MEDS: ceFAZolin 2 GM/D5W 50 ML 2 GM/50 ML BAG IVPB (14:37)
[2023-07-30] MEDS: BUPIVACAINE/EPINEPHRINE 0.5% 50 ML VIAL 30 ML INFILTRATE (15:15)
--- NOTE | 2023-07-30 15:55 | W.PM.PROC2 ---
Procedure Note - Detailed Date of Procedure 07/30/23 Pre-op Diagnosis right inguinal hernia Post-op Diagnosis Same (Indirect RIH) Procedure Performed Laparoscopic right inguinal hernia repair with mesh, da Ronnie assisted Surgeon Trell Sullivan, Anesthesia General and Local (0.5% bupivacaine with epinephrine) Indications This is a 77 year man who presented with a right groin bulge and discomfort for the past month. He was found to have a reducible right inguinal hernia physical exam and an ultrasound was obtained by his PCP and this showed evidence of a fat containing right inguinal hernia. Discussions were made with the patient about treatment options and decision was made to proceed with robotic assisted laparoscopic right inguinal hernia repair with mesh. Findings Laparoscopic right inguinal hernia repair was performed. The patient was found to have an indirect right inguinal hernia containing preperitoneal fat. No other abnormalities noted. A robotic transabdominal preperitoneal approach was utilized for repair. Once a wide enough preperitoneal pocket was created, I then placed a large right 3DMax mid mesh overlying the entire right myopectineal orifice. Description of Procedure Procedure as well as risks, benefits, and alternatives were discussed with the patient. Written consent was obtained and placed in chart prior to procedure. Patient was brought back to surgical suite. He was placed supine on operating table. Time-out was done to confirm patient and procedure. He was then intubated by Anesthesia Department. His abdomen was prepped and draped in sterile fashion using chlorhexidine prep. 0.5% bupivacaine with epinephrine was infiltrated at each location for incision. An 8 mm incision was made in the left lateral abdomen, and a 5 mm Optiview trocar was advanced through the abdominal layers under direct visualization. Once inside the abdominal cavity, carbon dioxide insufflation was used to create a pneumoperitoneum. A camera was inserted and the abdominal cavity was inspected. The patient was placed in slight Trendelenburg position. An 8 millimeter incision was made on the right lateral abdomen and an 8 millimeter trocar was inserted under direct visualization. Another 8 millimeter incision was made just superior to the umbilicus and an 8 millimeter trocar was inserted under direct visualization. The 5 mm port was then removed and this was replaced with another 8 mm robotic port. The robotic arms were brought up to the patient's bedside and secured to the ports. The camera and instruments were inserted. I then moved over to the robotic console and took control of the camera and instruments. After careful inspection of the abdominal cavity, I began scoring the peritoneum along the right lower quadrant using scissors with electrocautery. The preperitoneal plane was entered and this was carefully dissected caudally along the inferior epigastric vessels. Careful dissection with scissors with electrocautery and blunt dissection was used to continue this dissection. I dissected far enough laterally to allow for mesh placement, and also dissected medially to identify the pubic arch and Hernandez's ligament. The hernia sac was identified and carefully dissected posteriorly. The cord contents were also identified and the peritoneum was carefully dissected far enough posteriorly to allow for mesh placement. Once an adequate pocket was created, I then placed the mesh within the preperitoneal pocket and carefully unfolded it. The mesh was centered on the hernia defect with adequate overlap circumferentially. The inferior edge of the mesh was inspected to ensure that it was far enough away from the peritoneal edge. The mesh appeared in proper position overlying the entire myopectineal orifice. The mesh was secured using 3-0 Vicryl simple interrupted sutures in Hernandez's ligament, the superior medial edge, and superior lateral edge of the mesh. The
[2023-07-30] MEDS: fentaNYL CITRATE INJ (*CRX) 100 MCG/2 ML VIAL 25 MCG IV PUSH ×4 (16:20→16:35)
== END 2023-07-30 17:52 | disposition home or self-care (01) ==
PROVIDERS: PCP Family Medicine Adolescent Medicine; Visit Provider Surgery
PROC: 8E0Y4CZ Robotic Assisted Procedure of Lower Extremity, Percutaneous Endoscopic Approach (ICD-10-PCS; CPT 49650; principal; 2023-07-30 14:30)
DX: K40.90 Unilateral inguinal hernia, without obstruction or gangrene, not specified as recurrent (principal); E78.00 Pure hypercholesterolemia, unspecified; I10 Essential (primary) hypertension; N40.0 Benign prostatic hyperplasia without lower urinary tract symptoms; Z87.891 Personal history of nicotine dependence
CPT/HCPCS: 49650; S2900; 36415; 80048; 86850; 86900; 86901; 93005; A9270; C1781; J0690; J1100; J1885; J2405; J2704; J3010; J7120

== ENCOUNTER 2024-11-07 12:39 | Emergency (ER) | payer MEDICARE, SELFPAY ==
[2024-11-07] VITALS (15 sets, daily range): BP systolic 145–197; BP diastolic 71–83; PULSE 58–92; RESP 12–22; TEMP 36.4; O2SAT 94–98
--- NOTE | ~2024-11-07 | CT_ITS ---
EXAMINATION: CT abdomen pelvis w con DATE: 11/07/2024 14:49 INDICATION: abdominal pain TECHNIQUE: Computed tomography (CT) of the abdomen and pelvis was performed with 100 mL Omnipaque-350 intravenous contrast. Automated exposure control and iterative reconstruction technique were employe d. The dose-length product was 449.25 mGy-cm. COMPARISON: None. FINDINGS: Lower thorax: Multiple sub-6 mm pulmonary nodules. Bibasilar scar/atelectasis Liver: Subcentimeter left lobe hypodensity, too small to characterize, may represent a cyst or gisella ioma. Biliary/Gallbladder: Gallbladder is normal. No bile duct dilation. Pancreas: Mild atrophy. Spleen: Normal. Adrenals:No mass. Kidneys: No suspicious mass, obstructing stone, or hydronephrosis. Simple right renal cysts. Bilatera l subcentimeter hypodensities, too small to characterize, likely representing cysts. GI tract: Mild distal esophageal and gastric wall edema. No small bowel dilation. Mild dilation of th e transverse colon, without transition point, wall thickening, enhancement pattern change, or inflamm atory change. Normal appendix. Mild scattered diverticulosis without evidence of diverticulitis. Mesentery/Peritoneum: No ascites, mass, or free air. Retroperitoneum: No mass. Atherosclerotic calcifications of intra-abdominal arterial vessels. Pelvis: Bladder wall thickening. Posterior bladder diverticulum. Prostatomegaly. Trace free pelvic fl uid. Soft Tissues: Small uncomplicated fat-containing umbilical and left inguinal hernias. Bones: No acute osseous finding. Uncomplicated appearing right posterior L4-5 fusion and right L4 la minectomy, interbody device in good position. IMPRESSION: Multiple sub-6 mm pulmonary nodules which require no additional evaluation unless the patient is at h igh risk, in which case consider an optional low-dose noncontrast CT of the chest in one year. Mild esophagitis/gastritis. Mildly dilated transverse colon, presumably related to chronic distention given the lack of additiona l associated pathologic findings. Bladder wall thickening may be secondary to cystitis or chronic outlet obstruction from prostatomegal y. Reviewed, dictated and finalized at location K. IMPRESSION: Multiple sub-6 mm pulmonary nodules which require no additional evaluation unle ss the patient is at high risk, in which case consider an optional low-dose non contrast CT of the chest in one year. Mild esophagitis/gastritis. Mildly dilated transverse colon, presumably related to chronic distention given the lack of additional associated pathologic findings. Bladder wall thickening may be secondary to cystitis or chronic outlet obstruct ion from prostatomegaly.
--- OUTSIDE RECORDS SUMMARY | 2024-11-07 12:41 | XMS_ITS | Continuity of Care Document ---
Author Organization [facility] Address [address] [place] [address] Phone Care Team Providers Care Fire Extinguisher Installer Name Role Phone Darrell Espinoza MD, FACS Unavailable Unavailab le Advance Directives Directive Yes / No Effective Date File Name No Information Encounters Encounter Description Practice Location Reason(s) For Visit Diagnoses Date Provider Providers Copied on Encounter [facility], [address], [place], [place], [id number], [place] tel:[phone] Carmela Nogueira No Information Dec-0 6-200 4 Olga Ramírez. [address], [address], [place], [place], [id number], [place]. tel:[phone] Family History Family Member Type Diagnosis Age At Onset No Information Payers Payer name Insurance type Covered green party ID Authoriza tion(s) No Information Social History Type Description Quantity Date Captured Comments Sex Male Smoking Status No Information Chief Complaint And Reason For Visit No Information Reason For Referral Reason For Referral No Information History Of Present Illness Encounter Date Complaint History Of Prese nt Illness No Information Functional Status Date Functional Assessmen t No Information Instructions Date Instruction Additional Infor mation No Information Assessments Type Assessment Date No Information Patient Care Teams Name Effective Dates (start - stop) Status Members No Information
--- NOTE | 2024-11-07 12:48 | PC.NURSE ---
patient took mylanta and famotidine a couple of times today
--- NOTE | 2024-11-07 13:04 | PC.NURSE ---
patient aware of need for urine sample. advised to use call light if he needs to urinate
--- OUTSIDE RECORDS SUMMARY | 2024-11-07 13:05 | XMS_ITS | Continuity of Care Document ---
Author Organization [facility] Address [address] [place] [address] Phone Care Team Providers Care Estimate Clerk Name Role Phone Darrell Espinoza MD, FACS Unavailable Unavailab le Advance Directives Directive Yes / No Effective Date File Name No Information Encounters Encounter Description Practice Location Reason(s) For Visit Diagnoses Date Provider Providers Copied on Encounter [facility], [address], [place], [place], [id number], [place] tel:[phone] Carmela Nogueira No Information Dec-0 6-200 4 Olga Ramírez. [address], [address], [place], [place], [id number], [place]. tel:[phone] Family History Family Member Type Diagnosis Age At Onset No Information Payers Payer name Insurance type Covered constitution party ID Authoriza tion(s) No Information Social [...]
[2024-11-07 13:06] LABS: Hematocrit 48.7 % (42.0-52.0); Hemoglobin 16.6 g/dL (14.0-18.0); Immature Granulocyte Percent A 0.4 % (0-0.5); Lymphocytes Absolute Auto 0.64 K/mm3 (0.9-3.2); Mean Corpuscular HGB Conc 34.1 g/dl (32-36); Mean Corpuscular Hemoglobin 31.1 pg (26-34); Mean Corpuscular Volume 91.2 fl (80-100); Nucleated Red Blood Cells Absolute Auto 0.000 K/mm3 (0.0-0.012); Nucleated Red Blood Cells Perc 0.0 % (0.0-0.2); Platelet Count Result 239 k/mm3 (150-375); Red Blood Count 5.34 M/mm3 (4.6-6.20); White Blood Count 10.1 K/mm3 (4.5-10.0)
--- NOTE | 2024-11-07 13:26 | ECG_ITS ---
Test Date: 2024-11-07 12:48:51 Measurements Intervals [place] Rate: 69 P: 31 HI: 208 QRS: -12 QRSD: 107 T: 4 QT: 380 QTc: 408 Interpretive Statements SINUS RHYTHM CONSIDER INFERIOR INFARCT, AGE INDETERMINATE BORDERLINE ST ABNORMALITY- HIGH LATERAL LEADS BASELINE ARTIFACT- II, III, AVR, AVL, AVF, V2-V6 ABNORMAL ECG No previous ECG available for comparison Electronically Signed On 11-07-2024 15:47:50 CDT by Satinder Rivera D.O.
[2024-11-07 13:27] LABS: Alanine Aminotransferase 27 U/L (6-50); Albumin Level 4.8 g/dL (3.5-5.1); Alkaline Phosphatase 70 U/L (38-126); Anion Gap 10 mmol/L (4-12); Aspartate Amino Transferase 30 U/L (17-59); Bilirubin,Total 0.7 mg/dL (0.2-1.3); Blood Urea Nitrogen 17 mg/dL (9-20); Calcium 9.7 mg/dL (8.4-10.2); Carbon Dioxide 28 mmol/L (22-30); Chloride 99 mmol/L (98-107); Estimated CRCL calculation 80 ml/min; Estimated Glomerular Filt Rate > 60; Glucose 134 mg/dL (65-110); Lipase 87 U/L (23-300); Potassium 3.7 mmol/L (3.4-5.0); Sodium 137 mmol/L (137-145); Total Protein 8.5 g/dL (6.3-8.2)
[2024-11-07 13:49] LABS: Add Urine Microscopic? NO; Appearance Urine Clear (Clear); Glucose Urine UA Negative (Negative); Leukocyte Esterase Ur Negative LEU/UL (Negative); Nitrate Urine Negative (Negative); Specific Grav Ur 1.020 (1.001-1.035)
--- NOTE | 2024-11-07 15:42 | ED.ABDPAIN ---
HPI - Abdominal Pain General Chief Complaint: Abdominal Pain Stated Complaint: abdominal/back pain Time Seen by Provider: 11/07/24 12:54 Source: patient Mode of arrival: ambulatory Limitations: no limitations History of Present Illness HPI narrative: 79-year-old with a history of hypertension, BPH here with a complains of abdominal pain with started a day and half ago ,states he gets cramps in the mid abdomen. He denies any nausea ,vomiting .had normal BM yesterday. No fever or chills . No previous stomach issues MD elicited complaint: abdominal pain Pertinent past history: none Onset (ago): day(s) (1) Pain Consistency: intermittent Location: diffuse Severity: moderate Quality: cramping and aching Radiation: none Migration to: no migration Exacerbating factors: nothing Relieving factors: nothing Related Data Home Medications ?Medication ?Instructions ?Recorded ?Confirmed ?Last Taken ?Type loteprednol etabonate 0.5 % eye 1 drp DAILY 03/16/20 02/17/24 04/03/22 History gel drops (Lotemax) cyclosporine 0.05 % eye drops in a 1 drp EACH EYE Q12H 03/23/22 02/17/24 04/04/22 05:30 History dropperette (Restasis) multivitamin 1 tablet PO DAILY 03/23/22 02/17/24 03/30/22 History Allergies Allergy/AdvReac Type Severity Reaction Status Date / Time doxycycline Allergy Mild Hives Verified 11/07/24 12:40 Review of Systems Review of Systems: All systems reviewed & are unremarkable except as noted in HPI and below Constitutional: Constitutional: Reports no additional constitutional complaints Eyes: Eyes: Reports no additional eye complaints ENT: Reports system reviewed and no additional complaints, except as documented Cardiovascular: Cardiovascular: Reports no additional cardiovascular complaints Respiratory: Respiratory: Reports no additional respiratory complaints Gastrointestinal: Gastrointestinal: Reports as per HPI Musculoskeletal: Musculoskeletal: Reports no additional musculoskeletal complaints [facility] Past Medical History Medical History Unilateral primary osteoarthritis, left knee High cholesterol Hypertension Enlarged prostate Surgical History Surgical History History of robot-assisted repair of right inguinal hernia (07/2023) History of left inguinal hernia repair 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) History of total right knee replacement (2018) History of back surgery (~10/2020) Hx of elbow surgery (~1967) Hx of hernia repair (~1990) left inguinal Family History Family History Father Acute myocardial infarction Mother CHF (congestive heart failure) Diabetes mellitus Sibling Hypertension Other Heart disease Social History Social History Smoking packs per day: 2 Smoking cigarettes per day: 40.0 Years smoked: 6 Smoking pack-years: 12.00 Smoking status: Former smoker Tobacco type: cigarettes Second hand tobacco smoke exposure: No Smoking end date: 03/25/71 Alcohol intake: current Alcohol use details: STATES 1 DRINK EVERY COUPLE OF WEEKS Substance use: never Substance use type: does not use Current Housing: Decline to Answer Concerned About Future Housing: Decline to Answer Difficulty Paying Gas/Electric Bills: Decline to Answer Difficulty Paying for Meds: Decline to Answer Currently Unemployed: Decline to Answer Education: Decline to Answer Difficulty w/ Childcare or Family Care: Decline to Answer Living arrangements: with family Occupation/Education: retired Gender identity (if verbalized by the patient): Male Spiritual care concerns: No Exam Narrative: GENERAL: Well-appearing, well-nourished, and in no acute distress. HEAD: Normocephalic, atraumatic. EYES: PERRLA and EOMI. ENT: Nares clear, no rhinorrhea or epistaxis. Mucous membranes moist. NECK: Supple. CHEST: Clear to auscultation. No respiratory distress. HEART: Regular rate and rhythm. No murmur heard. Normal peripheral pulses. ABDOMEN: Soft, nontender, nondistended, normal active bowel sounds. EXTREMITIES: Normal range of motion. No edema. SKIN: Warm, dry, no rash. NEURO: No focal deficits. Alert and oriented x3. PSYCH: Normal mood and affect. Course Course Emergency Course: Patient remained asymptomatic declined any pain medication did inform him and the family about his lab work, CT findings cause of his pain is unknown at this time. Advised him to take Bentyl as needed, for which his primary doctor next week orreturn to the ER if symptoms get worse Vital Signs Vital signs: Vital Signs Temperature 36.4 C 11/07/24 12:43 Pulse Rate 92 08/16/25 12:43 Respiratory Rate 20 11/07/24 12:43 Blood Pressure 145/76 H 11/07/24 12:43 Pulse Oximetry 97 11/07/24 12:43 Oxygen Delivery Room Air 11/07/24 12:43 Temperature 36.4 C 11/07/24 12:43 Pulse Rate 69 11/07/24 14:45 Respiratory Rate 17 11/07/24 14:45 Blood Pressure 146/72 H 11/07/24 13:31 Pulse Oximetry 96 11/07/24 14:45 Oxygen Delivery Room Air 11/07/24 12:43 MDM - Abdominal Pain Differential Diagnosis Differential diagnosis: Likely abdominal pain, constipation, diverticulitis, gastroenteritis and small bowel obstruction Medical Records Attestation: I reviewed the patient's medical records. Lab Data Attestation: I reviewed the patient's lab results. 11/07/24 12:55 11/07/24 12:55 Labs: Lab Results 11/07/24 11/07/24 Range/Units 12:55 13:44 WBC 10.1 H (4.5-10.0) K/mm3 RBC 5.34 (4.6-6.20) M/mm3 Hgb 16.6 D (14.0-18.0) g/dL Hct 48.7 (42.0-52.0) % MCV 91.2 (80-100) fl MCH 31.1 (26-34) pg MCHC 34.1 (32-36) g/dl RDW 11.2 L (11.5-14.5) % Plt Count 239 (150-375) k/mm3 MPV 9.2 (7.4-10.4) fl Immature Gran % (Auto) 0.4 (0-0.5) % Neut % (Auto) 86.6 H (45.5-73.1) % Lymph % (Auto) 6.3 L (18.3-44.2) % [place] % (Auto) 6.1 (2.6-8.5) % Eos % (Auto) 0.2 (0-4.4) % Baso % (Auto) 0.4 (0.2-1.2) % Lymph # (Auto) 0.64 L (0.9-3.2) K/mm3 [place] # (Auto) 0.6 (0.1-0.6) K/mm3 Eos # (Auto) 0.0 (0-0.3) K/mm3 Baso # (Auto) 0.0 (0.0-0.1) K/mm3 Abs Immat Gran (auto) 0.04 H (0.00-0.031) K/mm3 Absolute Neuts (auto) 8.8 H (1.3-6.7) K/mm3 Absolute Nucleated RBC 0.000 (0.0-0.012) K/mm3 Nucleated RBC % 0.0 (0.0-0.2) % Sodium 137 (137-145) mmol/L Potassium 3.7 (3.4-5.0) mmol/L Chloride 99 (98-107) mmol/L Carbon Dioxide 28 (22-30) mmol/L Anion Gap 10 (4-12) mmol/L BUN 17 (9-20) mg/dL Creatinine 0.71 (0.7-1.3) mg/dL Estim Creat Clear Calc 80 ml/min Estimated GFR > 60 (59 - ) Glucose 134 H (65-110) mg/dL Calcium 9.7 (8.4-10.2) mg/dL Total Bilirubin 0.7 (0.2-1.3) mg/dL AST 30 (17-59) U/L ALT 27 (6-50) U/L Alkaline Phosphatase 70 (38-126) U/L Total Protein 8.5 H (6.3-8.2) g/dL Albumin 4.8 (3.5-5.1) g/dL Lipase 87 (23-300) U/L Urine Color Yellow (Yellow) Urine Appearance Clear (Clear) Urine pH 7.0 (5.0-9.0) Ur Specific [place] 1.020 (1.001-1.035) Urine Protein Negative (Negative) mg/dL Urine Glucose (UA) Negative (Negative) mg/dL Urine Ketones 1+ H (Negative) mg/dL Ur Blood (Man) Negative (Negative) Urine Nitrate Negative (Negative) Urine Bilirubin Negative (Negative) Urine Urobilinogen 1.0 (<2.0) mg/dL Leukocyte Esterase Rfl Negative (Negative) CARLINE/UL Imaging Data Radiologist's impression: ITS Impressions Abdomen/Pelvis CT 11/07/24 15:21 IMPRESSION: Multiple sub-6 mm pulmonary nodules which require no additional evaluation unless the patient is at high risk, in which case consider an optional low-dose noncontrast CT of the chest in one year. Mild esophagitis/gastritis. Mildly dilated transverse colon, presumably related to chronic distention given the lack of additional associated pathologic findings. Bladder wall thickening may be secondary to cystitis or chronic outlet obstruction from prostatomegaly. ECG Data EKG #1: ECG completion date: 11/07/24 ECG completion time: 12:48 normal rate (69), no ectopy, no ST changes, normal QRS, normal QT and NL axis Discharge Plan Discharge Clinical Impression: Abdominal pain Qualifiers: Abdominal location: generalized Qualified Code(s): R10.84 - Generalized abdominal pain Patient Disposition: Home Condition: Stable Instructions: Abdominal Pain (ED) Patient Language: Spanish Prescriptions: New dicyclomine 20 mg tablet 20 mg PO QID PRN (Reason: abdominal pain) Qty: 20 0RF No Action loteprednol etabonate [Lotemax] 0.5 % drops,gel 1 drp DAILY Rx Instructions: EACH EYE HS multivitamin Tablet 1 tablet PO DAILY cyclosporine [Restasis] 0.05 % Dropperette 1 drp EACH EYE Q12H lisinopril-hydrochlorothiazide 20-25 mg tablet 1 tablet PO DAILY Qty: 90 1RF rosuvastatin 40 mg tablet 40 mg PO DAILY Qty: 90 1RF diclofenac sodium 75 mg tablet,delayed release (DR/EC) 75 mg PO BID Qty: 180 2RF tamsulosin 0.4 mg capsule 0.4 mg PO BID Qty: 180 3RF Follow-up/Referrals: Rancho Salcedo MD [Primary Care Provider] - Time of Disposition: 15:46
== END 2024-11-07 16:28 | disposition home or self-care (01) ==
PROVIDERS: Emergency Provider Family Medicine; PCP Family Medicine Adolescent Medicine
DX: R10.84 Generalized abdominal pain (principal); I10 Essential (primary) hypertension; E78.00 Pure hypercholesterolemia, unspecified; N40.0 Benign prostatic hyperplasia without lower urinary tract symptoms; M17.11 Unilateral primary osteoarthritis, right knee; Z96.653 Presence of artificial knee joint, bilateral; Z87.891 Personal history of nicotine dependence; Z79.899 Other long term (current) drug therapy; K20.90 Esophagitis, unspecified without bleeding; K29.70 Gastritis, unspecified, without bleeding; R91.8 Other nonspecific abnormal finding of lung field; R93.41 Abnormal radiologic findings on diagnostic imaging of renal pelvis, ureter, or bladder; R93.3 Abnormal findings on diagnostic imaging of other parts of digestive tract; R94.31 Abnormal electrocardiogram [ECG] [EKG]
CPT/HCPCS: 36415; 74177; 80053; 81003; 83690; 85025; 93005; 99284; Q9967